=== PATIENT | female | born 1945 | race Caucasian/White ===

== ENCOUNTER 2025-01-16 07:27 | Day surgery (SDC) | payer MEDICARE, OTHER ==
[~2025-01-16] VITALS: Ht 167.6 cm; Wt 102.6 kg
[2025-01-16] VITALS (11 sets, daily range): BP systolic 149–197; BP diastolic 72–88; PULSE 67–85; RESP 12–15; TEMP 97.8; O2SAT 93–99
--- NOTE | 2025-01-16 07:55 | ELECTROCARDIOGRAPH REPORT ---
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 LOUANN Mcadams Measurements Intervals [place] Rate: 76 P: 16 [place]: 146 QRS: 36 QRSD: 84 T: 44 QT: 380 QTc: 428 Interpretive Statements Sinus rhythm RSR' in V1 or V2, right VCD or RVH Left ventricular hypertrophy Electronically Signed On 01-16-2025 17:37:[address] LOUANN Mcadams Please click the below link to view image of tracing.
--- NOTE | 2025-01-16 07:55 | RADIOLOGY REPORT ---
EXAM: XR Chest, 1 View CLINICAL INDICATION: pre op heart cath TECHNIQUE: Frontal view of the chest. COMPARISON: None FINDINGS: LUNGS AND PLEURAL SPACES: See below. HEART: Unremarkable. No cardiomegaly. MEDIASTINUM: Unremarkable. Normal mediastinal contour. BONES/JOINTS: Unremarkable. No acute fracture. TUBES, LINES AND DEVICES: Left-sided Mediport with the distal tip in the SVC. No pneumothorax. OTHER FINDINGS: . . IMPRESSION: No acute cardiopulmonary process.
[2025-01-16] MEDS ORDERED: nitroGLYCERIN 0.4mg SUBLingual tab SL PRN ×2 (08:00→11:35)
[2025-01-16] MEDS ORDERED: DEXTROSE 15 GM of carb/4 tabs (each vial/BOTTLE has 4 tablets) PO PRN ×2 (08:05)
[2025-01-16] MEDS ORDERED: glucagon, human recombinant 1mg kit SUBCUT PRN (08:05)
[2025-01-16] MEDS ORDERED: dextrose 50%-water 50ml dispensing syringe IV PRN ×2 (08:05)
[2025-01-16 08:30] LABS: BASOPHILS % (AUTO) 0.8 % (0-1); EOSINOPHILS # (AUTO) 0.3 X10'3 (0-0.9); EOSINOPHILS % (AUTO) 6.7 % (0-6); HEMATOCRIT 46.4 % (35.0-45.0); HEMOGLOBIN 15.8 g/dl (12.0-16.0); LYMPHOCYTES # (AUTO) 1.2 X10'3 (1.1-4.8); LYMPHOCYTES % (AUTO) 25.9 % (21-51); MEAN CORPUSCULAR HEMOGLOBIN 30.6 PG (27.0-31.0); MEAN CORPUSCULAR HGB CONC 34.1 g/dL (33.0-36.5); MEAN PLATELET VOLUME 8.1 FL (7.4-10.4); MONOCYTES # (AUTO) 0.3 X10'3 (0-0.9); MONOCYTES % (AUTO) 6.3 % (2-12); NEUTROPHILS # (AUTO) 2.9 X10'3 (1.8-7.7); NEUTROPHILS % (AUTO) 60.3 % (42-75); PLATELET COUNT 167 X10'3 (140-440); RED BLOOD COUNT 5.16 X10'6 (4.20-5.60); RED CELL DISTRIBUTION WIDTH 13.2 % (11.5-14.5); WHITE BLOOD COUNT 4.8 X10'3 (4.5-11.0)
[2025-01-16 08:41] LABS: ALBUMIN 4.5 G/DL (3.4-5.0); ANION GAP 9 (8-16); BLOOD UREA NITROGEN 18 MG/DL (7-18); CALCIUM 9.8 MG/DL (8.5-10.1); CHLORIDE 105 MMOL/L (99-107); CREATININE 0.72 MG/DL (0.40-0.90); GLUCOSE 153 MG/DL (70-104); POTASSIUM 4.5 MMOL/L (3.5-5.1); SODIUM 143 MMOL/L (135-145); TOTAL CARBON DIOXIDE 29.3 MMOL/L (24-32); eCRCL 58 ML/MIN; eGFR 78 ML/MIN
[2025-01-16 08:45] LABS: APTT 29 SECONDS (22-32); INR 1.1 INR; PROTHROMBIN TIME 10.8 SECONDS (9.0-12.0)
[2025-01-16] MEDS: LORazepam 0.5 MG tablet PO PRN (08:45)
[2025-01-16] MEDS: diphenhydrAMINE 25mg capsule PO PRN (08:45)
[2025-01-16] MEDS: normal saline 1,000 ML IV SCH (08:46)
[2025-01-16] MEDS ORDERED: METF-438 PO (08:47)
[2025-01-16] MEDS ORDERED: ATOR20TA66 PO (08:47)
[2025-01-16] MEDS ORDERED: LISI10TA27 PO (08:47)
[2025-01-16] MEDS ORDERED: iohexol 350 MG/ML 50ML vial IV ONE ×3 (09:33→10:32)
[2025-01-16] MEDS ORDERED: midazolam 1 mg/ML 2ml injection ONE (09:33)
[2025-01-16] MEDS ORDERED: LIDOcaine 1% 30ml preserv. free vial ONE (09:33)
[2025-01-16] MEDS ORDERED: fentaNYL/PF 50MCG/1 ML 2ML syringe ONE (09:33)
[2025-01-16] MEDS ORDERED: iohexol 350MG/ML 100ml bottle IV ONE (09:33)
[2025-01-16 09:37] LABS: HEMOGLOBIN A1C 6.4 % (4.5-6.2)
[2025-01-16] MEDS ORDERED: nitroGLYCERIN 500mcg/5mL D5W 5 ML IV ONE (10:21)
[2025-01-16] MEDS ORDERED: HYDROcodone/acetaminophen 5mg/325mg tablet PO PRN (11:35)
[2025-01-16] MEDS ORDERED: ondansetron/PF 4mg/2ml inj IV PRN (11:35)
[2025-01-16] MEDS ORDERED: OXAZEpam 15mg capsule PO PRN (11:35)
[2025-01-16] MEDS ORDERED: proCHLORperazine 10 MG/2 ml inj IV PRN (11:35)
[2025-01-16] MEDS ORDERED: HYDROcodone/acetaminophen 10/325mg tab PO PRN (11:35)
[2025-01-16] MEDS ORDERED: normal saline 1000ml 1,000 ML IV SCH (11:35)
--- NOTE | 2025-01-16 15:35 | CARDIOLOGY REPORT ---
DATE OF SERVICE: 01/16/2025 DICTATING PHYSICIAN: Michele Vergara MD LOCATION: [facility]. PROCEDURES: * Left heart catheterization. * Left ventriculography. * Ascending aortography. * Right innominate angiography. * Left subclavian angiography. * Right internal carotid, left internal carotid angiography. * Selective left and right coronary arteriography. * Right iliofemoral arteriogram, Angio-Seal application. 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 Now has developed right breast cancer and is planning to undergo chemotherapy followed by surgery. She had an abnormal nuclear stress test with anterior wall reversible ischemia. She is hypertensive diabetic, dyslipidemic, obese. Risks, benefits, and alternatives of diagnostic coronary angiography, potential intervention were discussed with her. Risks include and not restricted to , stroke, myocardial infarction, renal failure, neurologic or vascular complications, bleeding complications, and allergic reaction. In office echocardiography, she had moderate mitral regurgitation. TECHNIQUE: Following usual sterile preparation and draping, right groin was infiltrated with 10 mL of 1% lidocaine local anesthetic. Following single wall puncture technique, J-tip guidewire lead, a 6-[place]ian sheath was introduced in the right femoral artery. Conscious sedation was achieved with 2 mg Versed and 100 mcg of fentanyl. During left coronary angiography, 200 mcg of nitroglycerin was administered, intracoronary artery. Following 6-[place]ian sheath placement in right femoral artery, selective left and right coronary arteriography in multiple projectional obliquities, left ventriculography in right anterior oblique projection, innominate and subclavian angiography, carotid angiographies were performed with 6-[place]ian femoral, left 4, right 4, and 6-[place] pigtail catheters Rodriguez shaped. At termination, right iliofemoral arteriogram was performed. The Angio-Seal was applied in cardiac cath technologist. Hemostasis was obtained. There were no complications. 175 mL of Omnipaque 350 contrast was administered. Fluoroscopy time was 9.7 minutes. Radiation exposure was 4047 cGy per cm squared. CONSCIOUS SEDATION TIME: 60 minutes. FINDINGS: AO 145/52, LV 145/4-23. LEFT VENTRICULOGRAM: Ejection fraction 66%. Heavy mitral ring calcification. No mitral regurgitation. Right iliofemoral artery is smooth and adequate for Angio-Seal. ASCENDING AORTOGRAPHY: Tortuous anastomosis between aortic arch and descending aorta. Difficult to engage left subclavian. Smooth ascending aorta, right innominate 1 cm or greater, left subclavian 6 mm or less. Left carotid approximately 5 mm diameter. Right carotid is 7-8 mm diameter. Large right vertebral. Left vertebral with 75% ostial narrowing. Left main coronary has intimal irregularities, 4 mm vessel; proximal left anterior descending, 3 mm, tapering to 2 mm. There is a trifurcational 80% narrowing of the left anterior descending, diagonal, and left anterior descending continuation. It occurs after the third septal branch. It wraps around the apex of the myocardium. It supplies the apical myocardium, perhaps one-third. The diagonal and left anterior descending are 1 mm to 1.5 mm in diameter. Left circumflex provides the first and second obtuse marginal, large left atrial, 3 mm vessel, has scattered 10% narrowings. There is a large right coronary artery, which provides a posterior descending and first bifurcated posterolateral that wraps around the apex of the myocardium. Second posterolateral reaches the apex. It is a 1.5 mm vessel. RESULTS: * Normal left ventriculogram, ejection fraction of 66%. No mitral regurgitation. LVEDP 23 mmHg. * Smooth ascending aorta, angulated eccentric ascending aorta, descending aorta continuation. * Left main coronary smooth. * Mid left anterior descending after the third septal has a trifurcational 80% anterior descending, 80% diagonal, 80% distal to diagonal narrowing. * Left anterior descending and diagonal are 1 mm and 1.5 mm diameter. * Left circumflex with 10% narrowing. * Right coronary smooth large vessels reaching the apex. * Right innominate 15% narrowing, left innominate half the diameter of the right innominate and right subclavian. * Right internal carotid, left internal carotid are smooth. * Ostial 75% left vertebral. * Left and right internal mammary arteries are smooth. COMMENT: The patient has severe distal to third septal left anterior descending narrowing with anterior wall reversible ischemia. This is a moderately large segment. She plans to have chemotherapy. I told her to proceed. She will have a cardiovascular surgical consultation with respect to revascularization. The vessels are poor quality for intervention. This appears to be perhaps radiation damage, not atherosclerosis. Michele Vergara MD TID: [id number] RECEIPT: [id number] NISREEN/ELIN cc: Edmund Snow MD, [facility], Leeann Mac MD
== END 2025-01-16 16:55 | disposition home or self-care (01) ==
LOC: SSTAY O 07:27
PROVIDERS: ATTEND Internal Medicine Cardiovascular Disease
DX: R94.39 Abnormal result of other cardiovascular function study (principal); I25.10 Atherosclerotic heart disease of native coronary artery without angina pectoris; E11.9 Type 2 diabetes mellitus without complications; I10 Essential (primary) hypertension; E78.5 Hyperlipidemia, unspecified; Z79.899 Other long term (current) drug therapy; Z79.01 Long term (current) use of anticoagulants
CPT/HCPCS: 36415; 71046; 80048; 82948; 83036; 84484; 85025; 85610; 85730; 93005; 93458; 93567; 99152; 99153; A6258; C1760; J1644; J2003; J2250; J3010; J3490; J7030; Q0163; Q9967; Z7610

== ENCOUNTER 2025-08-05 10:46 | Outpatient (CLI) | payer MEDICARE, OTHER ==
[~2025-08-05 10:46] MED LIST: ATOR20TA66 PO; LISI10TA27 PO; METF-438 PO
[2025-08-05] MEDS ORDERED: CEPH500C3 PO (12:04)
[2025-08-05] MEDS ORDERED: PROC10TA97 PO (12:04)
[2025-08-05] MEDS ORDERED: ASPI-1071 PO (12:04)
[2025-08-05] MEDS ORDERED: ONDA-245 PO (12:04)
[2025-08-05 12:29] LABS: MEAN PLATELET VOLUME 7.3 FL (7.4-10.4); PRE OP HEMATOCRIT 30.4 % (35.0-45.0); PRE OP PLATELET COUNT 111 X10'3 (140-440); PRE OP WHITE BLOOD COUNT 4.0 10'3 (4.8-10.8); RED CELL DISTRIBUTION WIDTH 14.4 % (11.5-14.5)
[2025-08-05 12:32] LABS: PRE OP INR 1.1 INR; PRE OP PARTIAL THROMB. TIME 27.0 SECONDS (22-32); PRE OP PROTIME 10.9 SECONDS (9.0-12.0)
[2025-08-05 12:33] LABS: CREATININE 0.74 MG/DL (0.40-0.90); PRE OP ALT 23 U/L (30-65); PRE OP ANION GAP 7 (8-16); PRE OP AST 22 U/L (10-37); PRE OP BILIRUB, TOTAL 0.4 MG/DL (0.0-1.0); PRE OP GLUCOSE 90 MG/DL (70-104); PRE OP HEMOGLOBIN 10.3 g/dL (12.0-16.0); PRE OP POTASSIUM 4.4 MMOL/L (3.4-5.1); PRE OP SODIUM 143 MMOL/L (135-145); TOTAL CARBON DIOXIDE 29.2 MMOL/L (24-32); eGFR 76 ML/MIN
== END 2025-08-05 23:59 | disposition home or self-care (01) ==
LOC: LAB 10:46 → EDSTATUS 08-14 10:30
PROVIDERS: ATTEND Surgery
DX: Z01.812 Encounter for preprocedural laboratory examination (principal); C50.811 Malignant neoplasm of overlapping sites of right female breast
CPT/HCPCS: 36415; 80053; 85025; 85610; 85730